=== PATIENT | female | born 1985 | race Asian ===

== ENCOUNTER 2017-03-12 18:57 | Emergency (ER) | payer OTHER, MEDICAID ==
[2017-03-12] MEDS: LEVALBUTEROL (NEB) 1.25 MG/0.5 ML AMP HHN (19:34)
[2017-03-12] MEDS: METHYLPREDNISOLONE 125 MG INJ IM (20:04)
[2017-03-12] MEDS: ACETAMINOPHEN 500 MG TAB PO (20:04)
== END 2017-03-12 22:38 | disposition home or self-care (01) ==
LOC: FTE 18:57
DX: J45.909 Unspecified asthma, uncomplicated (principal)
CPT/HCPCS: 71046; 87400; 94664; 96372; 99284-25